=== PATIENT | male | born 1955 | race Caucasian/White ===

== ENCOUNTER → 2016-09-20 | Day surgery (SDC) | payer OTHER ==
[~2016-09-20] MED LIST: FLEXERIL10 MG PO; HYDROCODON-ACE1 EAC5 PO; INVOKANA300 MG PO; LISINOPRIL20 MG PO; METFORMIN HCL1000 M1 PO; MORPHINE SULFAT30 M3 PO; SIMVASTATIN20 MG PO; TIZANIDINE HCL4 M1 PO
--- NOTE | ~2016-09-20 | OR ---
Unit #: [id number] #: [id number] Patient: KAREEM ANDREW JR [id number] [address] [address] [id number] MR#: [id number] NAME: KAREEM ANDREW JR ROOM: Date of Procedure: 09/20/2016 Admission Date: 09/20/2016 Surgeon: Fran Olivares M.D. : 1955 Attending Physician: Fran Olivares M.D. Primary Care Physician: Caitie Mckeon Aprn OPERATIVE REPORT JOB NOTE: CC: [facility] PREOPERATIVE DIAGNOSES 1. Back pain. 2. Radiculopathy. 3. Post-laminectomy syndrome. 4. Degenerative disk disease. POSTOPERATIVE DIAGNOSES 1. Back pain. 2. Radiculopathy. 3. Post-laminectomy syndrome. 4. Degenerative disk disease. PROCEDURE PERFORMED Lumbar epidural steroid injection with intravenous sedation and fluoroscopic guidance for needle localization. INDICATIONS FOR PROCEDURE The patient is a 60-year-old male with previously mentioned diagnosis. He has flare of the back and left greater than right leg pain. With the previously mentioned diagnosis, he is a nonsurgical patient. Single epidural steroid injection done in 12/2015 given a very good improvement in 7 to 8 months. DESCRIPTION OF PROCEDURE The patient was placed in a seated position. Standard monitors were applied. 2 mg of Versed were given for sedation and anxiolysis, which were adequate. Vital signs remained stable. Sterile prep and drape then of the lumbar area was performed. The skin at the L4-L5 level was localized with 1% lidocaine. An 18-gauge Hustead needle was then advanced via loss of resistance technique and fluoroscopic guidance in toward the epidural space. After confirming proper positioning with fluoroscopy and radiographic contrast, 80 mg of Depo-Medrol and 2 mL of 0.25% bupivacaine were deposited. The patient tolerated the procedure otherwise well and was discharged to the recovery room in stable condition. Dictated by... Fran Olivares M.D. [facility] Unit #: [id number] #: [id number] Patient: KAREEM ANDREW JR TD: 09/20/2016 23:18 JOB #: [id number] OPERATIVE REPORT Page 1 of 1 X Fran Olivares MD X PROCEDURE OPERATIVE NOTE
== END | disposition home or self-care (01) ==
LOC: CCSC 07:58
DX: M96.1 Postlaminectomy syndrome, not elsewhere classified (principal); M51.16 Intervertebral disc disorders with radiculopathy, lumbar region; E11.9 Type 2 diabetes mellitus without complications; Z79.84 Long term (current) use of oral hypoglycemic drugs; I10 Essential (primary) hypertension; J44.9 Chronic obstructive pulmonary disease, unspecified
CPT/HCPCS: 82947; J1040; J2250